=== PATIENT | female | born 2000 | race African-American/Black ===

== ENCOUNTER 2019-12-25 18:28 | Emergency (ER) | payer OTHER ==
[~2019-12-25] VITALS: Ht 170.2 cm; Wt 62.6 kg
[~2019-12-25 18:28] MED LIST: IRON325 PO; KEFLEX500 M1 PO; PREDNISONE 20 M20 MG PO
[2019-12-25] MEDS ORDERED: IBUPROFEN 600600 M1 PO (20:44)
[2019-12-25 21:15] VITALS: BP 116/74
== END 2019-12-25 21:16 | disposition home or self-care (01) ==
LOC: ER 18:28
DX: S13.4XXA Sprain of ligaments of cervical spine, initial encounter (principal); M54.6 Pain in thoracic spine; M54.5 Low back pain; R51 Headache; M79.601 Pain in right arm; J45.909 Unspecified asthma, uncomplicated; V43.52XA Car driver injured in collision with other type car in traffic accident, initial encounter; Y93.I9 Activity, other involving external motion; Y92.488 Other paved roadways as the place of occurrence of the external cause; Y99.8 Other external cause status